=== PATIENT | male | born 1980 | race American Indian/Alaskan Native ===

== ENCOUNTER 2021-09-15 21:49 | Emergency (ER) | payer OTHER ==
--- NOTE | 2021-09-15 23:17 | XRay Report ---
LEFT TOE(S) 3 VIEW(S) INDICATION / CLINICAL INFORMATION: Left Great Toe Swollen COMPARISON: None available. FINDINGS: BONES / JOINT(S): No acute fracture or subluxation. No significant arthritis. SOFT TISSUES: No radiopaque foreign bodies. Mild prominence of the left great toe. No gross abnormali ty of the nail. ADDITIONAL FINDINGS: None. IMPRESSION: 1. No evidence of acute osseous injury or radiopaque foreign body within the soft tissues of the left great toe. Signer Name: Wei Whittaker II, MD Signed: 09/15/2021 11:13 PM Workstation Name: [id number]
--- NOTE | 2021-09-16 01:17 | Emergency Department Report ---
ED Lower Extremity HPI - General Chief Complaint: Extremity Injury, Lower Stated Complaint: SWOLLEN LEFT BIG TOE Time Seen by Provider: 09/16/21 00:58 Source: patient Mode of arrival: Ambulatory Limitations: No Limitations - History of Present Illness MD Complaint: foot injury - Related Data Previous Rx's Medication Instructions Recorded Last Taken Type Amlodipine Besylate [Norvasc] 5 mg PO DAILY #20 09/16/21 Unknown Rx Ketorolac [Toradol] 10 mg PO Q6H PRN #14 09/16/21 Unknown Rx cephALEXin [Keflex] 500 mg PO Q8HR #30 cap 09/16/21 Unknown Rx Allergies Allergy/AdvReac Type Severity Reaction Status Date / Time No Known Allergies Allergy Verified 09/15/21 22:28 ED Review of Systems ROS: Stated complaint: SWOLLEN LEFT BIG TOE Other details as noted in HPI Comment: All other systems reviewed and negative ED Past Medical Hx - Past Medical History Previous Medical History?: No - Surgical History Past Surgical History?: No - Medications Home Medications: Home Medications Medication Instructions Recorded Confirmed Last Taken Type Amlodipine Besylate [Norvasc] 5 mg PO DAILY #20 09/16/21 Unknown Rx Ketorolac [Toradol] 10 mg PO Q6H PRN #14 09/16/21 Unknown Rx cephALEXin [Keflex] 500 mg PO Q8HR #30 cap 09/16/21 Unknown Rx ED Physical Exam - General Limitations: No Limitations General appearance: alert, in no apparent distress - Head Head exam: Present: atraumatic, normocephalic - Eye Eye exam: Present: normal appearance, PERRL, EOMI Pupils: Present: normal accommodation - ENT ENT exam: Present: mucous membranes moist - Neck Neck exam: Present: normal inspection - Respiratory Respiratory exam: Present: normal lung sounds bilaterally. Absent: respiratory distress - Cardiovascular Cardiovascular Exam: Present: regular rate, normal rhythm. Absent: systolic murmur, diastolic murmur, rubs, gallop - GI/Abdominal GI/Abdominal exam: Present: soft, normal bowel sounds - Rectal Rectal exam: Present: deferred - Extremities Exam Extremities exam: Present: normal inspection - Back Exam Back exam: Present: normal inspection - Neurological Exam Neurological exam: Present: alert, oriented X3 - Psychiatric Psychiatric exam: Present: normal affect, normal mood - Skin Skin exam: Present: warm, dry, intact, normal color. Absent: rash ED Course Vital Signs 09/15/21 09/16/21 22:28 01:33 Temperature 98.5 F Pulse Rate 67 Respiratory 16 Rate Blood Pressure 210/132 200/140 [Right] O2 Sat by Pulse 99 Oximetry ED Lower Extremity MDM - Radiology Data Radiology results: report reviewed [facility] [address] [place] [address] XRay Report Signed Patient: KYLER DYSON MR#: [id number] 0 : 1980 Acct:[id number] Age/Sex: 41 / M ADM Date: 09/15/21 Loc: ED Attending Dr: Ordering Physician: ED MD DIVINA Date of Service: 09/15/21 Procedure(s): XR toe(s) 2+V LT Accession Number(s): [id number] cc: ED MD DIVINA Fluoro Time In Minutes: LEFT TOE(S) 3 VIEW(S) INDICATION / CLINICAL INFORMATION: Left Great Toe Swollen COMPARISON: None available. FINDINGS: BONES / JOINT(S): No acute fracture or subluxation. No significant arthritis. SOFT TISSUES: No radiopaque foreign bodies. Mild prominence of the left great toe. No gross abnormality of the nail. ADDITIONAL FINDINGS: None. IMPRESSION: 1. No evidence of acute osseous injury or radiopaque foreign body within the soft tissues of the left great toe. Signer Name: Melanie Whittaker II, MD Signed: 09/15/2021 11:13 PM Workstation Name: [id number] Transcribed By: CLARISSA Dictated By: MELANIE WHITTAKER II, MD Electronically Authenticated By: MELANIE WHITTAKER II, MD Signed Date/Time: 09/15/212312 DD/ 10 TD/TT: - Medical Decision Making Presents to the emergency department complaining of high blood pressure. Patient is otherwise asymptomatic without confusion, chest pain, hematuria, or SOB. BP today is 210/132 Patient is not currently on medication Doubt CV, AMI, heart failure, renal infarction or failure or other end organ damage. Disposition:Discussed with patient their elevated blood pressure and need for close outpatient management of their hypertension. Will provide a prescription for the patients previous antihypertensive medication and arrange for the patient to follow up in a primary care clinic Disposition: Discussed with patient their elevated blood pressure and need for close outpatient management of their hypertension. Will provide a prescription for amlodipine 5mg PO daily and arrange for the patient to follow up in a primary care clinic Critical care attestation.: If time is entered above; I have spent that time in minutes in the direct care of this critically ill patient, excluding procedure time. ED Disposition Clinical Impression: Cellulitis, toe, HTN (hypertension) Disposition: HOME / SELF CARE / HOMELESS Is pt being admited?: No Does the pt Need Aspirin: No Condition: Stable Instructions: Cellulitis, Adult, Hypertension, Adult, Hypertension (ED) Prescriptions: cephALEXin [Keflex] 500 mg PO Q8HR #30 cap Amlodipine Besylate [Norvasc] 5 mg PO DAILY #20 Ketorolac [Toradol] 10 mg PO Q6H PRN #14 PRN Reason: Pain Referrals: RACHID MOSES MD [Primary Care Provider] - 3-5 Days
[2021-09-16 01:33] VITALS: BP 200/140
[2021-09-16] MEDS ORDERED: cloNIDine 0.2 MG TAB PO ONE (01:34)
== END 2021-09-16 02:34 | disposition home or self-care (01) ==
LOC: ED 21:49
DX: L03.032 Cellulitis of left toe (principal); I10 Essential (primary) hypertension
CPT/HCPCS: 99283